=== PATIENT | male | born 1955 | race Two or more races ===

== ENCOUNTER 2025-01-10 12:56 | Inpatient (IN) | payer MEDICARE, MEDICAID ==
[~2025-01-10] VITALS: Ht 170.2 cm; Wt 67.6 kg
[2025-01-10] MEDS ORDERED: FOLI0.8T3 PO (13:47)
[2025-01-10] MEDS ORDERED: THIA100T70 PO (13:47)
[2025-01-10] MEDS ORDERED: MULT-213 PO (13:47)
[2025-01-10] MEDS ORDERED: NA P133E RC (13:47)
[2025-01-10] MEDS ORDERED: BISA10SU11 RC (13:47)
[2025-01-10] MEDS ORDERED: METO25TA6 PO (13:47)
[2025-01-10] MEDS ORDERED: TAMS-12 PO (13:47)
[2025-01-10] MEDS ORDERED: ACET-73 PO (13:47)
[2025-01-10] MEDS ORDERED: FAMO-108 PO (13:47)
[2025-01-10] MEDS ORDERED: ACET325T53 PO (13:47)
[2025-01-10] MEDS ORDERED: MAGN400O6 PO (13:47)
[2025-01-10 14:41] LABS: BASOPHILS % (AUTO) 0.6 % (0.0-2.0); EOSINOPHILS # (AUTO) 1.2 K/uL (0.0-0.7); EOSINOPHILS % (AUTO) 16.5 % (0.0-6.0); HEMATOCRIT 38 % (39-51); HEMOGLOBIN 13.3 g/dL (13.5-17.5); LYMPHOCYTES % (AUTO) 27.1 % (20.0-44.0); MEAN CORPUSCULAR HEMOGLOBIN 32 PG (26.0-33.0); MEAN CORPUSCULAR HGB CONC 35 g/dl (31.0-36.0); MEAN CORPUSCULAR VOLUME 92 fL (80-96); MONOCYTES # (AUTO) 0.7 K/uL (0.1-1.30); NEUTROPHILS # (AUTO) 3.4 K/uL (1.8-8.9); NEUTROPHILS % (AUTO) 46.8 % (43.0-81.0); PLATELET COUNT (AUTO) 250 K/uL (150-450); RED BLOOD CELL COUNT(AUTO) 4.18 MIL/uL (4.5-6.0); WHITE BLOOD COUNT (AUTO) 7.4 K/uL (4.3-11.0)
[2025-01-10 14:48] LABS: CALCIUM, SERUM 8.9 mg/dL (8.5-10.1); CARBON DIOXIDE 26 mmol/L (21-32); CHLORIDE 104 mmol/L (98-107); CREATININE 0.7 mg/dL (0.6-1.3); GLUCOSE 79 mg/dL (74-106); POTASSIUM 3.8 mmol/L (3.5-5.1); SODIUM SERUM 139 mmol/L (136-145); UREA NITROGEN, BLOOD 13 mg/dL (7-18)
[2025-01-10 14:55] LABS: ALANINE AMINOTRANSFERASE 22 U/L (12-78); ALBUMIN 3.5 g/dL (3.4-5.0); ALKALINE PHOSPHATASE 119 U/L (46-116); ASPARTATE AMINOTRANSFERASE 23 U/L (15-37); BILIRUBIN,DIRECT 0.1 mg/dL (0.0-0.2); BILIRUBIN,TOTAL 0.2 mg/dL (0.2-1.0); TOTAL PROTEIN, SERUM 7.2 g/dL (6.4-8.2)
[2025-01-10 14:56] LABS: APPEARANCE,URINE CLEAR (CLEAR); BILIRUBIN,URINE NEGATIVE (NEGATIVE); BLOOD, URINE NEGATIVE Ery/uL (NEGATIVE); COLOR,URINE YELLOW (YELLOW); KETONES,URINE NEGATIVE (NEGATIVE); LEUKOCYTE ESTERASE ,URINE NEGATIVE (NEGATIVE); NITRITE, URINE NEGATIVE (NEGATIVE); PROTEIN,URINE NEGATIVE (NEGATIVE); UGLUCOSE NEGATIVE (NEGATIVE); UROBILINOGEN,URINE 0.2 EU/dL (0.2)
[2025-01-10 14:59] LABS: AMPHETAMINE, URINE NEGATIVE (NEGATIVE); BARBITURATE, URINE NEGATIVE (NEGATIVE); BENZODIAZEPINE, URINE NEGATIVE (NEGATIVE); CANNABINOID, URINE NEGATIVE (NEGATIVE); COCCAINE, URINE NEGATIVE (NEGATIVE); OPIATE, URINE NEGATIVE (NEGATIVE); PHENCYCLIDINE SCREEN,URINE NEGATIVE (NEGATIVE)
[2025-01-10 15:01] LABS: ACETAMINOPHEN <10 ug/ml (10-30); ALCOHOL, BLOOD < 3 mg/dL (0-10); SALICYLATE 1.1 mg/dL (2.8-20.0)
[2025-01-10] MEDS ORDERED: ACETAMINOPHEN 325 MG TABLET PO PRN (17:00)
[2025-01-10] MEDS: METOPROLOL TARTRATE 25 MG TABLET PO SCH (17:00)
[2025-01-10] MEDS ORDERED: MAGNESIUM HYDROXIDE 30 ML UDC PO PRN (17:00)
[2025-01-10] MEDS ORDERED: ONDANSETRON HCL/PF 4 MG/2 ML VIAL IVP PRN (17:00)
[2025-01-10] MEDS ORDERED: Z GUARD REMEDY 4 OZ OINT TP PRN (17:00)
[2025-01-10] MEDS ORDERED: MAG HYDROX/AL HYDROX/SIMETH 30 ML UDC PO PRN (17:00)
[2025-01-10 20:00] VITALS: BP 112/52; TEMP 98.1; O2SAT 98
[2025-01-10] MEDS: ZOLPIDEM TARTRATE 5 MG TABLET PO PRN (21:17)
[2025-01-10] MEDS: TAMSULOSIN 0.4 MG CAP.SR.24H PO SCH (21:17)
[2025-01-10] MEDS: IV NS 0.9% 1,000 ML IV PRN (21:58)
[2025-01-11 04:00] VITALS: BP 141/76; TEMP 98; O2SAT 98
[2025-01-11] MEDS: FAMOTIDINE (20 MG) 20 MG TABLET PO SCH (05:11)
[2025-01-11] MEDS ORDERED: FOLIC ACID 1 MG TABLET PO SCH (09:00)
[2025-01-11] MEDS ORDERED: MULTIVIT W/MINERALS 1 TAB TABLET PO SCH (09:00)
[2025-01-11] MEDS ORDERED: THIAMINE HCL 100 MG TABLET PO SCH (09:00)
== END 2025-01-11 07:50 | disposition left against medical advice (07) | DRG 948 ==
LOC: ER 13:08 → MEDSG1 16:44
PROVIDERS: ADMIT Nurse Practitioner Acute Care; ATTEND Nurse Practitioner Acute Care
DX: R53.1 Weakness (principal); G93.49 Other encephalopathy; R29.6 Repeated falls; Z53.29 Procedure and treatment not carried out because of patient's decision for other reasons; I10 Essential (primary) hypertension; F29 Unspecified psychosis not due to a substance or known physiological condition; Z79.899 Other long term (current) drug therapy; R53.81 Other malaise; Z87.820 Personal history of traumatic brain injury; Z91.199 Patient's noncompliance with other medical treatment and regimen due to unspecified reason; Z91.148 Patient's other noncompliance with medication regimen for other reason
CPT/HCPCS: 36415; 80048-TC; 80076-TC; 85025-TC; 87081-TC; G0378; G0480